=== PATIENT | male | born 1980 | race Caucasian/White ===

== ENCOUNTER 2018-08-11 20:58 | Emergency (ER) | payer BC ==
[2018-08-11] MEDS ORDERED: Cephalexin 500 MG Cap PO ONE (22:18)
--- NOTE | 2018-08-11 22:25 | EDM.PDOC ---
ED HPI GENERAL MEDICAL PROBLEM - General Chief Complaint: Lower Extremity Injury/Pain Stated Complaint: KNEE INFECTION Time Seen by Provider: 08/11/18 22:05 Source of Information: Reports: Patient, RN Notes Reviewed History Limitations: Reports: No Limitations - History of Present Illness INITIAL COMMENTS - FREE TEXT/NARRATIVE: The patient states that he jumped off a diving board into a swimming pool on 08/06/2018. He states that because he is heavyset, the diving board bent down more than usual. He slipped, and the board sprang up, scraping his bilateral anterior legs. He states that he doused the wounds with hydrogen peroxide on 08/06/2018 and 08/07/2018, and since then he has been treating the abrasions with Neosporin and a clean dressing. He states that he has since, however, developed erythema surrounding the abrasions and swelling to both of his legs. No recent fever. The patient also asked for me to take a look at a lump on the back of his neck that has been there for years. The patient does not use antibacterial soap at home (which would increase his risk of being colonized with MRSA). The patient does not have a PCP. Treatments SALON DESIGNER: Reports: Other (see below) Other Treatments SALON DESIGNER: tylenol 1000 mg this morning Bilateral Lower Leg Pain Score (Numeric/FACES): 4 - Related Data Allergies Allergy/AdvReac Type Severity Reaction Status Date / Time No Known Allergies Allergy Verified 08/11/18 21:08 Home Meds: Home Meds . [No Known Home Meds] 08/11/18 [History] Past Medical History Musculoskeletal History: Reports: Fracture (left wrist) Endocrine/Metabolic History: Reports: Obesity/BMI 30+ - Past Surgical History Musculoskeletal Surgical History: Reports: ORIF (left wrist) Social & Family History - Tobacco Use Smoking Status *Q: Never Smoker - Caffeine Use Caffeine Use: Reports: Coffee, Soda - Alcohol Use Alcohol Use History: Yes Alcohol Use Frequency: Socially - Recreational Drug Use Recreational Drug Use: Yes Drug Use in Last 12 Months: No Recreational Drug Type: Reports: Marijuana/Hashish (last smoked around 2002) - Living Situation & Occupation Living situation: Reports: Single, with Family (Son) 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 ED EXAM, GENERAL - Physical Exam Exam: See Below Exam Limited By: No Limitations General Appearance: Alert, WD/WN, No Apparent Distress Neck: Other (Soft, nontender lump to the inferior aspect of the patient's posterior neck, consistent with a lipoma) Extremities: Other (Scabbed abrasions to the anterior bilateral legs, the left larger than the right, with surrounding erythema. No significant increased warmth to the erythema. Minimal lower extremity edema. Neurovascular status of both lower extremities is intact.) Course - Vital Signs Last Recorded V/S: Last Vital Signs Temp 37.2 C 08/11/18 21:12 Pulse 79 08/11/18 21:12 Resp 20 08/11/18 21:12 BP 150/94 H 08/11/18 21:12 Pulse Ox 97 08/11/18 21:12 - Orders/Labs/Meds Meds: Medications Discontinued Medications Generic Name Dose Route Start Last Admin Trade Name Freq PRN Reason Stop Dose Admin Cephalexin 500 mg 08/11/18 22:18 08/11/18 22:29 Keflex PO 08/11/18 22:19 500 mg ONETIME ONE Administration - Re-Assessments/Exams Free Text/Narrative Re-Assessment/Exam: 08/11/18 22:18 It is not clear that the patient has an infection to either of the abrasions to his anterior legs. The abrasions themselves have scabbed over, and while there is surrounding erythema, that could be due to the Neosporin that he has been applying. Nevertheless, I think it is reasonable that he be treated with an antibiotic for a few days, just in case there is an infection. I will start him on cephalexin, and prescribe additional via [facility]. I advised that the patient stop using Neosporin. He is to keep the wounds clean with ordinary soap and water. Since the wounds have scabbed over, a dressing is not needed unless he has pain when his pants brush on the wounds. With respect to the lump on the back of the patient's neck, it appears that the patient has a lipoma. I advised him to leave it alone. Departure - Departure Time of Disposition: 22:20 Disposition: Home, Self-Care 01 Condition: Good Clinical Impression: Abrasion of anterior left lower leg, Abrasion of anterior right lower leg - Discharge Information *PRESCRIPTION DRUG MONITORING PROGRAM REVIEWED*: Not Applicable *COPY OF PRESCRIPTION DRUG MONITORING REPORT IN PATIENT ANNA MARIE: Not Applicable Instructions: Abrasion, [id number] Referrals: PCP,None [Primary Care Provider] - Forms: ED Department Discharge Additional Instructions: You were seen in the emergency room for evaluation of abrasions on the front of both of your legs, along with a lump to the back of your neck. It is unclear if either of your legs are infected. The redness may be due to the Neosporin that you have been applying. Nevertheless, you have been started on antibiotic Keflex, and a prescription for a five-day course has been provided. Take one tablet of Keflex every 6 hours, starting around 4:30 tomorrow morning, 08/12/2018, as prescribed. Keep the wounds clean with ordinary soap and water. Pat dry, then leave alone. A dressing is not necessary unless your pants cause pain when brushing against the wounds. We recommend that you not apply an antibiotic ointment. The lump on your back appears to be a lipoma = a benign fatty tumor. These are not dangerous, and nothing needs to be done about it. If any other problems, please do not hesitate to return to the ER.
== END 2018-08-11 22:37 | disposition home or self-care (01) ==
LOC: JD.ED 20:58
DX: S80.812A Abrasion, left lower leg, initial encounter (principal); S80.811A Abrasion, right lower leg, initial encounter; W01.198A Fall on same level from slipping, tripping and stumbling with subsequent striking against other object, initial encounter; Y93.12 Activity, springboard and platform diving; Y92.34 Swimming pool (public) as the place of occurrence of the external cause; E66.9 Obesity, unspecified; Z68.42 Body mass index [BMI] 45.0-49.9, adult
CPT/HCPCS: 99283; A9270